=== PATIENT | male | born 1980 | race Caucasian/White ===

== ENCOUNTER 2018-11-11 13:38 | Emergency (ER) | payer OTHER, SELFPAY ==
[2018-11-11 13:51] VITALS: BP 140/95; PULSE 58; RESP 14; TEMP 36.7; O2SAT 98; BMI 23.1
--- NOTE | 2018-11-11 13:58 | DI.RAD.S_ITS ---
PROCEDURE: XR CHEST 1V INDICATIONS: chest pain TECHNIQUE: One view of the chest was acquired. COMPARISON: None. FINDINGS: Surgical changes and devices: None. Lungs and pleura: Lungs are clear. No pleural effusions or pneumothorax. Mediastinum: Mediastinal contours appear normal. Heart size is normal. Bones and chest wall: No suspicious bony lesions. Overlying soft tissues appear unremarkable. IMPRESSION: No acute cardiopulmonary findings. Dictated by: Lisa Pineda M.D. on 11/11/2018 at 13:34 Approved by: Lisa Pineda M.D. on 11/11/2018 at 13:34
[2018-11-11 14:01] VITALS: BP 140/95; PULSE 58; RESP 14; TEMP 36.7; O2SAT 98; BMI 23.1
--- NOTE | 2018-11-11 14:13 | ED.CHESTPAIN ---
HPI - Chest Pain <Livier Lopez PA-C - Last Filed: 11/11/18 19:37> General Chief Complaint: Chest Pain Stated Complaint: chest/lt shoulder/back/tingling fingers Time Seen by Provider: 11/11/18 14:13 History of Present Illness HPI narrative: This 37-year-old male comes to ED secondary to 2 day history of ?euphoric/panicky bouts. He states he has woken up with these sensations which feel like an adrenaline elizondo, almost like when he was dehydrated in the past but resolved quickly. He states that this also happened yesterday when he was playing disc golf, he felt anxious and saw spots. He states that he feels like if the symptoms persist he could pass out, but they resolve right away. He states that he has had pain that is deep in between his shoulder blades, in his upper back and perhaps chest for 2 or 3 weeks. He describes this as a pulling sensation. He denies radiation of the pain, but states he has had no tingling in his thumb and pointer and middle fingers ongoing during this time as well. He denies any weakness. He denies any tingling, numbness or weakness in the lower extremities. He states that he has had some fatigue and ongoing headaches for the last few weeks. He states that he was recently diagnosed with hepatitis C and has a ?nagging sense of neglect? as far as his health goes. He did see a primary care provider 2 months ago and started on Paxil for anxiety. He feels like some of his symptoms are correlated with starting this. He is on numerous herbal supplements and vitamins including Kratom, he thinks 3gm daily total, states none of these have changed recently. He states he has an ongoing, mild dull headache also without any acute changes. He denies any vision change. He denies any dyspnea. He denies any pain or swelling in the extremities. He states he is not having any new abdominal pain, urinary symptoms or bowel habit changes. No new fever or rash. 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 Related Data Allergies Allergy/AdvReac Type Severity Reaction Status Date / Time No Known Drug Allergies Allergy Verified 11/11/18 13:56 Review of Systems <Livier Lopez PA-C - Last Filed: 11/11/18 19:37> Review of Systems ROS Unobtainable: All systems reviewed & are unremarkable except as noted in HPI and below PFSH <Livier Lopez PA-C - Last Filed: 11/11/18 19:37> Medical History (Updated 11/11/18 @ 15:48 by Livier Lopez PA-C) No pertinent family history (Chronic) Anxiety disorder (Chronic) Marijuana abuse (Chronic) Hepatitis C (Chronic) Surgical History (Updated 11/11/18 @ 14:50 by Livier Lopez PA-C) No pertinent past surgical history (Chronic) Comment: occ tob, +THC Exam <Livier Lopez PA-C - Last Filed: 11/11/18 19:37> Narrative Exam Narrative: GENERAL APPEARANCE: Patient sitting comfortably, in no distress. HEENT: PERRL, EOMI, no scleral icterus NECK: Supple LUNGS: Clear to auscultation bilaterally. CHEST: No tenderness to palpation HEART: Rate and rhythm regular, normal S1 and S2, no S3 or S4. ABDOMEN: Soft, nontender, nondistended, bowel sounds present x 4 quadrants, no masses palpable, no hepatosplenomegaly. EXTREMITIES: No edema, no cyanosis, no calf tenderness DERMATOLOGIC: No jaundice or exanthem NEUROLOGIC: Alert and oriented with normal speech and coordination. Sensation grossly intact throughout the extremities MUSCULOSKELETAL: Full range of motion of the extremities, clinical nurse reviewer strength 5/5 bilaterally Initial Vital Signs Initial Vital Signs: Vital Signs Temperature 98.0 F 11/11/18 13:51 Pulse Rate 58 L 11/11/18 13:51 Respiratory Rate 14 11/11/18 13:51 Blood Pressure 140/95 H 11/11/18 13:51 Pulse Oximetry 98 11/11/18 13:51 <Ivet Solorio DO - Last Filed: 11/14/18 09:06> Initial Vital Signs Initial Vital Signs: Vital Signs Temperature 98.0 F 11/11/18 13:51 Pulse Rate 58 L 11/11/18 13:51 Respiratory Rate 14 11/11/18 13:51 Blood Pressure 140/95 H 11/11/18 13:51 Pulse Oximetry 98 11/11/18 13:51 Course <Livier Lopez PA-C - Last Filed: 11/11/18 19:37> Additional Information: Patient appears well on exam today. His symptoms started around the time he was diagnosed with hepatitis C and he admits to having a significant amount of anxiety surrounding this as well as previous anxiety disorder, which we discussed could be worsened by herbal medications and especially Kratom. Advised to start tapering off of that and to see a naturopathic physician if he wishes to use these type of medications. He does think perhaps paroxetine contributed to symptoms as well and he wants to discontinue this. Advised to taper to 10 mg and follow up with PCP in the next few days. He is agreeable with this plan as well as to return here if any acute changes or worsening symptoms in the interim Orders Ordered: ED Orders 11/11/18 13:58 XR chest 1V Stat EKG-12 Lead Stat 11/11/18 14:32 Complete Blood Count AUTO DIFF Stat Comprehensive Metabolic Panel Stat Lipase Stat Magnesium Stat Partial Thromboplastin Time Stat Prothrombin Time INR Stat Troponin & CK Cardiac Panel Stat Vital Signs - 8 hr 11/11/18 13:51 11/11/18 14:01 11/11/18 15:56 Temperature 98.0 F 98.0 F Pulse Rate 58 L 58 L 61 Respiratory Rate 14 14 13 Blood Pressure 140/95 H 140/95 H Blood Pressure [Left Arm] 123/77 Pulse Oximetry 98 98 97 11/11/18 16:04 Temperature Pulse Rate 62 Respiratory Rate 18 Blood Pressure 123/77 Blood Pressure [Left Arm] Pulse Oximetry 99 <Ivet Solorio, - Last Filed: 11/14/18 09:06> Orders Ordered: ED Orders 11/11/18 13:58 XR chest 1V Stat EKG-12 Lead Stat 11/11/18 14:32 Complete Blood Count AUTO DIFF Stat Comprehensive Metabolic Panel Stat Lipase Stat Magnesium Stat Partial Thromboplastin Time Stat Prothrombin Time INR Stat Troponin & CK Cardiac Panel Stat Vital Signs - 8 hr 11/11/18 13:51 11/11/18 14:01 11/11/18 15:56 Temperature 98.0 F 98.0 F Pulse Rate 58 L 58 L 61 Respiratory Rate 14 14 13 Blood Pressure 140/95 H 140/95 H Blood Pressure [Left Arm] 123/77 Pulse Oximetry 98 98 97 11/11/18 16:04 Temperature Pulse Rate 62 Respiratory Rate 18 Blood Pressure 123/77 Blood Pressure [Left Arm] Pulse Oximetry 99 MDM - Chest Pain <Livier Lopez PA-C - Last Filed: 11/11/18 19:37> Lab Data Result diagrams: 11/11/18 14:32 11/11/18 14:32 Lab Results 11/11/18 11/11/18 11/11/18 Range/Units 14:32 14:32 14:32 WBC 5.3 (4.5-11.0) X10^3/uL RBC 4.67 (4.5-5.9) X10^6/uL Hgb 15.0 (13.5-17.5) g/dL Hct 44.5 (41-53) % MCV 95.2 (80-100) fL MCH 32.1 (26-34) PG MCHC 33.8 (30-36) % RDW 12.9 (11.6-14.8) % Plt Count 262 (150-400) X10^3/uL Neut % (Auto) 46.6 L (50-75) % Lymph % (Auto) 38.4 (25-40) % Dewey % (Auto) 11.5 (3-14) % Eos % (Auto) 2.2 (2-4) % Baso % (Auto) 1.3 (0-2) % Neut # (Auto) 2500 (7317-2826) /uL Lymph # (Auto) 2000 (0247-0673) /uL Dewey # (Auto) 600 (0-900) /uL Eos # (Auto) 100 (0-450) /uL Baso # (Auto) 100 (0-100) /uL PT 10.2 (10.1-12.7) SECONDS INR 0.9 (0.9-1.3) APTT 33 (26.4-36.2) SECONDS Sodium 138 (137-145) mmol/L Potassium 3.9 (3.4-5.1) mmol/L Chloride 101 (98-107) mmol/L Carbon Dioxide 29 (22-32) mmol/L BUN 26 H (9-20) mg/dL Creatinine 1.10 (0.66-1.25) mg/dL Estimated GFR > 60.0 (>60) mL/min BUN/Creatinine Ratio 23.6 H (6-22) Glucose 93 (70-100) mg/dL Calcium 9.4 (8.4-10.2) mg/dL Magnesium 1.9 (1.6-2.3) mg/dL Total Bilirubin 0.4 (0.2-1.3) mg/dL AST 280 H (17-59) IU/L ALT 605 H (21-72) IU/L Alkaline Phosphatase 125 (38-126) U/L Total Creatine Kinase 275 H (55-170) U/L CK-MB (CK-2) 2.42 H (<2.37) ng/mL CK-MB (CK-2) Rel Index 0.9 L (1.5-5.0) % Troponin I < 0.012 (0.01-0.034) ng/mL Total Protein 7.6 (6.3-8.2) g/dL Albumin 4.6 (3.5-5.0) g/dL Globulin 3.0 (1.7-4.1) g/dL Albumin/Globulin Ratio 1.5 (1.0-2.8) Lipase 145 (23-300) U/L Imaging Data Chest x-ray: Radiologist's impression: [place] [address] XRay Report Signed Patient: Sami Wade EMR#: [id number] : 1980Acct:[id number] Age/Sex: 38 / MDate of Service: 11/11/18 Loc: ED Accession Number: [id number] Procedure: XR chest 1V Ordering Provider: Ivet Solorio D.O. PROCEDURE: XR CHEST 1V INDICATIONS: chest pain TECHNIQUE: One view of the chest was acquired. COMPARISON: None. FINDINGS: Surgical changes and devices: None. Lungs and pleura: Lungs are clear. No pleural effusions or pneumothorax. Mediastinum: Mediastinal contours appear normal. Heart size is normal. Bones and chest wall: No suspicious bony lesions. Overlying soft tissues appear unremarkable. IMPRESSION: No acute cardiopulmonary findings. Dictated by: Lisa Pineda M.D. on 11/11/2018 at 13:34 Approved by: Lisa Pineda M.D. on 11/11/2018 at 13:34 ECG Data Attestation: I personally reviewed and interpreted this ECG as follows: (Sinus bradycardia, rate 57, normal axis) <DO Maryann Jacobo Filed: 11/14/18 09:06> Lab Data Lab Results 11/11/18 11/11/18 11/11/18 Range/Units 14:32 14:32 14:32 WBC 5.3 (4.5-11.0) X10^3/uL RBC 4.67 (4.5-5.9) X10^6/uL Hgb 15.0 (13.5-17.5) g/dL Hct 44.5 (41-53) % MCV 95.2 (80-100) fL MCH 32.1 (26-34) PG MCHC 33.8 (30-36) % RDW 12.9 (11.6-14.8) % Plt Count 262 (150-400) X10^3/uL Neut % (Auto) 46.6 L (50-75) % Lymph % (Auto) 38.4 (25-40) % Dewey % (Auto) 11.5 (3-14) % Eos % (Auto) 2.2 (2-4) % Baso % (Auto) 1.3 (0-2) % Neut # (Auto) 2500 (3588-7078) /uL Lymph # (Auto) 2000 (9468-9134) /uL Dewey # (Auto) 600 (0-900) /uL Eos # (Auto) 100 (0-450) /uL Baso # (Auto) 100 (0-100) /uL PT 10.2 (10.1-12.7) SECONDS INR 0.9 (0.9-1.3) APTT 33 (26.4-36.2) SECONDS Sodium 138 (137-145) mmol/L Potassium 3.9 (3.4-5.1) mmol/L Chloride 101 (98-107) mmol/L Carbon Dioxide 29 (22-32) mmol/L BUN 26 H (9-20) mg/dL Creatinine 1.10 (0.66-1.25) mg/dL Estimated GFR > 60.0 (>60) mL/min BUN/Creatinine Ratio 23.6 H (6-22) Glucose 93 (70-100) mg/dL Calcium 9.4 (8.4-10.2) mg/dL Magnesium 1.9 (1.6-2.3) mg/dL Total Bilirubin 0.4 (0.2-1.3) mg/dL AST 280 H (17-59) IU/L ALT 605 H (21-72) IU/L Alkaline Phosphatase 125 (38-126) U/L Total Creatine Kinase 275 H (55-170) U/L CK-MB (CK-2) 2.42 H (<2.37) ng/mL CK-MB (CK-2) Rel Index 0.9 L (1.5-5.0) % Troponin I < 0.012 (0.01-0.034) ng/mL Total Protein 7.6 (6.3-8.2) g/dL Albumin 4.6 (3.5-5.0) g/dL Globulin 3.0 (1.7-4.1) g/dL Albumin/Globulin Ratio 1.5 (1.0-2.8) Lipase 145 (23-300) U/L Discharge Plan Departure Patient Disposition: Home Clinical Impression: Drug side effects, Chest discomfort Faintness Qualifiers: Syncope type: unspecified Qualified Code(s): R55 - Syncope and collapse Discharge Date/Time: 11/11/18 16:04 Interventions: ED Discharge Assessment Last Done: 11/11/18 16:04 Instructions: DI for Atypical Chest Pain, DI for Dizziness-Nonvertigo Activity Restrictions/Additional Instructions: I am not sure exactly what has caused your adrenaline/dizzy type symptoms in the last couple of days. I suspect it may be due to herbal/medication side effects and panic attacks given what you have described to me about the sequence of symptoms and your recent stress. As we talked about, you should return to the ED if you have any acutely worsening symptoms or changes over the weekend. Otherwise, please start reducing your Kratom dose by 1/3 for the next 5-7 days, then reduce again for the next 5-7 days, and discontinue. This drug can cause significant side effects and opioid/stimulant type symptoms, and can also cause some of the ongoing symptoms that you described. I know you have not changed the dose recently but it could be cumulative. I am not sure of the interaction of this with other herbal medicines and your paroxetine. You may cut your paroxetine dose down to 1/2 tablet (10 mg) but do not stop this abruptly. Please follow-up with your PCP 1st of next week to assess your progress and determine what other changes to make. The number for the health customer resource specialist at [facility] is [phone] if you do wish to call regarding a local primary care provider here. Referrals: [facility], Maury Obrien [Other] <Ivet Solorio DO - Last Filed: 11/14/18 09:06> Cosign ED Attending Stanislawature Attestation: I was immediately available in the department for consultation. This documentation has been reviewed and I agree with assessment and plan. Supervised by Ivet Solorio DO
[2018-11-11 14:39] LABS: Add Manual Diff / Slide Review NO; Basophils Absolute Auto 100 /uL (0-100); Basophils Percent Auto 1.3 % (0-2); Eosinophils Absolute Auto 100 /uL (0-450); Eosinophils Percent Auto 2.2 % (2-4); Hematocrit 44.5 % (41-53); Lymphocytes Absolute Auto 2000 /uL (1100-4500); Lymphocytes Percent Auto 38.4 % (25-40); Mean Corpuscular HGB Conc 33.8 % (30-36); Mean Corpuscular Hemoglobin 32.1 PG (26-34); Mean Corpuscular Volume 95.2 fL (80-100); Monocytes Absolute Auto 600 /uL (0-900); Monocytes Percent Auto 11.5 % (3-14); Neutrophils Absolute Auto 2500 /uL (1500-7000); Neutrophils Percent Auto 46.6 % (50-75); Platelet Count 262 X10^3/uL (150-400); Red Blood Cell Count 4.67 X10^6/uL (4.5-5.9); Red Cell Distribution Width 12.9 % (11.6-14.8); White Blood Cell Count 5.3 X10^3/uL (4.5-11.0)
--- NOTE | 2018-11-11 14:43 | ED_ITS ---
HPI - Chest Pain <Livier Lopez PA-C - Last Filed: 11/11/18 19:37> General Chief Complaint: Chest Pain Stated Complaint: chest/lt shoulder/back/tingling fingers Time Seen by Provider: 11/11/18 14:13 History of Present Illness HPI narrative: This 37-year-old male comes to ED secondary to 2 day history of ?euphoric/panicky bouts. He states he has woken up with these sensations which feel like an adrenaline elizondo, almost like when he was dehydrated in the past but resolved quickly. He states that this also happened yesterday when he was playing disc golf, he felt anxious and saw spots. He states that he feels like if the symptoms persist he could pass out, but they resolve right away. He states that he has had pain that is deep in between his shoulder blades, in his upper back and perhaps chest for 2 or 3 weeks. He describes this as a pulling sensation. He denies radiation of the pain, but states he has had no tingling in his thumb and pointer and middle fingers ongoing during this time as well. He denies any weakness. He denies any tingling, numbness or weakness in the lower extremities. He states that he has had some fatigue and ongoing headaches for the last few weeks. He states that he was recently diagnosed with hepatitis C and has a ?nagging sense of neglect? as far as his health goes. He did see a primary care provider 2 months ago and started on Paxil for anxiety. He feels like some of his symptoms are correlated with starting this. He is on numerous herbal supplements and vitamins including Kratom, he thinks 3gm daily total, states none of these have changed recently. He states he has an ongoing, mild dull headache also without any acute changes. He denies any vision change. He denies any dyspnea. He denies any pain or swelling in the extremities. He states he is not having any new abdominal pain, urinary symptoms or bowel habit changes. No new fever or rash. 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 Related Data Allergies Allergy/AdvReac Type Severity Reaction Status Date / Time No Known Drug Allergies Allergy Verified 11/11/18 13:56 Review of Systems <Livier Lopez PA-C - Last Filed: 11/11/18 19:37> Review of Systems ROS Unobtainable: All systems reviewed & are unremarkable except as noted in HPI and below PFSH <Livier Lopez PA-C - Last Filed: 11/11/18 19:37> Medical History (Updated 11/11/18 @ 15:48 by Livier Lopez PA-C) No pertinent family history (Chronic) Anxiety disorder (Chronic) Marijuana abuse (Chronic) Hepatitis C (Chronic) Surgical History (Updated 11/11/18 @ 14:50 by Livier Lopez PA-C) No pertinent past surgical history (Chronic) Comment: occ tob, +THC Exam <PAM Freedman Last Filed: 11/11/18 19:37> Narrative Exam Narrative: GENERAL APPEARANCE: Patient sitting comfortably, in no distress. HEENT: PERRL, EOMI, no scleral icterus NECK: Supple LUNGS: Clear to auscultation bilaterally. CHEST: No tenderness to palpation HEART: Rate and rhythm regular, normal S1 and S2, no S3 or S4. ABDOMEN: Soft, nontender, nondistended, bowel sounds present x 4 quadrants, no masses palpable, no hepatosplenomegaly. EXTREMITIES: No edema, no cyanosis, no calf tenderness DERMATOLOGIC: No jaundice or exanthem NEUROLOGIC: Alert and oriented with normal speech and coordination. 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 Initial Vital Signs Initial Vital Signs: Vital Signs Temperature 98.0 F 11/11/18 13:51 Pulse Rate 58 L 11/11/18 13:51 Respiratory Rate 14 11/11/18 13:51 Blood Pressure 140/95 H 11/11/18 13:51 Pulse Oximetry 98 11/11/18 13:51 <Ivet Solorio DO - Last Filed: 11/14/18 09:06> Initial Vital Signs Initial Vital Signs: Vital Signs Temperature 98.0 F 11/11/18 13:51 Pulse Rate 58 L 11/11/18 13:51 Respiratory Rate 14 11/11/18 13:51 Blood Pressure 140/95 H 11/11/18 13:51 Pulse Oximetry 98 11/11/18 13:51 Course <Livier Lopez PA-C - Last Filed: 11/11/18 19:37> Additional Information: Patient appears well on exam today. His symptoms started around the time he was diagnosed with hepatitis C and he admits to having a significant amount of anxiety surrounding this as well as previous anxiety disorder, which we discussed could be worsened by herbal medications and especially Kratom. Advised to start tapering off of that and to see a naturopathic physician if he wishes to use these type of medications. He does think perhaps paroxetine contributed to symptoms as well and he wants to discontinue this. Advised to taper to 10 mg and follow up with PCP in the next few days. He is agreeable with this plan as well as to return here if any acute changes or worsening symptoms in the interim Orders Ordered: ED Orders 11/11/18 13:58 XR chest 1V Stat EKG-12 Lead Stat 11/11/18 14:32 Complete Blood Count AUTO DIFF Stat Comprehensive Metabolic Panel Stat Lipase Stat Magnesium Stat Partial Thromboplastin Time Stat Prothrombin Time INR Stat Troponin & CK Cardiac Panel Stat Vital Signs - 8 hr 11/11/18 13:51 11/11/18 14:01 11/11/18 15:56 Temperature 98.0 F 98.0 F Pulse Rate 58 L 58 L 61 Respiratory Rate 14 14 13 Blood Pressure 140/95 H 140/95 H Blood Pressure [Left Arm] 123/77 Pulse Oximetry 98 98 97 11/11/18 16:04 Temperature Pulse Rate 62 Respiratory Rate 18 Blood Pressure 123/77 Blood Pressure [Left Arm] Pulse Oximetry 99 <Ivet Solorio, DO - Last Filed: 11/14/18 09:06> Orders Ordered: ED Orders 11/11/18 13:58 XR chest 1V Stat EKG-12 Lead Stat 11/11/18 14:32 Complete Blood Count AUTO DIFF Stat Comprehensive Metabolic Panel Stat Lipase Stat Magnesium Stat Partial Thromboplastin Time Stat Prothrombin Time INR Stat Troponin & CK Cardiac Panel Stat Vital Signs - 8 hr 11/11/18 13:51 11/11/18 14:01 11/11/18 15:56 Temperature 98.0 F 98.0 F Pulse Rate 58 L 58 L 61 Respiratory Rate 14 14 13 Blood Pressure 140/95 H 140/95 H Blood Pressure [Left Arm] 123/77 Pulse Oximetry 98 98 97 11/11/18 16:04 Temperature Pulse Rate 62 Respiratory Rate 18 Blood Pressure 123/77 Blood Pressure [Left Arm] Pulse Oximetry 99 MDM - Chest Pain <Livier Lopez PA-C - Last Filed: 11/11/18 19:37> Lab Data Result diagrams: 11/11/18 14:32 11/11/18 14:32 Lab Results 11/11/18 11/11/18 11/11/18 Range/Units 14:32 14:32 14:32 WBC 5.3 (4.5-11.0) X10^3/uL RBC 4.67 (4.5-5.9) X10^6/uL Hgb 15.0 (13.5-17.5) g/dL Hct 44.5 (41-53) % MCV 95.2 (80-100) fL MCH 32.1 (26-34) PG MCHC 33.8 (30-36) % RDW 12.9 (11.6-14.8) % Plt Count 262 (150-400) X10^3/uL Neut % (Auto) 46.6 L (50-75) % Lymph % (Auto) 38.4 (25-40) % Crane % (Auto) 11.5 (3-14) % Eos % (Auto) 2.2 (2-4) % Baso % (Auto) 1.3 (0-2) % Neut # (Auto) 2500 (2153-8210) /uL Lymph # (Auto) 2000 (7954-3189) /uL Crane # (Auto) 600 (0-900) /uL Eos # (Auto) 100 (0-450) /uL Baso # (Auto) 100 (0-100) /uL PT 10.2 (10.1-12.7) SECONDS INR 0.9 (0.9-1.3) APTT 33 (26.4-36.2) SECONDS Sodium 138 (137-145) mmol/L Potassium 3.9 (3.4-5.1) mmol/L Chloride 101 (98-107) mmol/L Carbon Dioxide 29 (22-32) mmol/L BUN 26 H (9-20) mg/dL Creatinine 1.10 (0.66-1.25) mg/dL Estimated GFR > 60.0 (>60) mL/min BUN/Creatinine Ratio 23.6 H (6-22) Glucose 93 (70-100) mg/dL Calcium 9.4 (8.4-10.2) mg/dL Magnesium 1.9 (1.6-2.3) mg/dL Total Bilirubin 0.4 (0.2-1.3) mg/dL AST 280 H (17-59) IU/L ALT 605 H (21-72) IU/L Alkaline Phosphatase 125 (38-126) U/L Total Creatine Kinase 275 H (55-170) U/L CK-MB (CK-2) 2.42 H (<2.37) ng/mL CK-MB (CK-2) Rel Index 0.9 L (1.5-5.0) % Troponin I < 0.012 (0.01-0.034) ng/mL Total Protein 7.6 (6.3-8.2) g/dL Albumin 4.6 (3.5-5.0) g/dL Globulin 3.0 (1.7-4.1) g/dL Albumin/Globulin Ratio 1.5 (1.0-2.8) Lipase 145 (23-300) U/L Imaging Data Chest x-ray: Radiologist's impression: [place] [address] XRay Report Signed Patient: Sami Wade EMR#: [id number] : 1980Acct:[id number] Age/Sex: 38 / MDate of Service: 11/11/18 Loc: ED Accession Number: [id number] Procedure: XR chest 1V Ordering Provider: Ivet Solorio D.O. PROCEDURE: XR CHEST 1V INDICATIONS: chest pain TECHNIQUE: One view of the chest was acquired. COMPARISON: None. FINDINGS: Surgical changes and devices: None. Lungs and pleura: Lungs are clear. No pleural effusions or pneumothorax. Mediastinum: Mediastinal contours appear normal. Heart size is normal. Bones and chest wall: No suspicious bony lesions. Overlying soft tissues appear unremarkable. IMPRESSION: No acute cardiopulmonary findings. Dictated by: Lisa Pineda M.D. on 11/11/2018 at 13:34 Approved by: Lisa Pineda M.D. on 11/11/2018 at 13:34 ECG Data Attestation: I personally reviewed and interpreted this ECG as follows: (Sinus bradycardia, rate 57, normal axis) <Ivet C Mank, DO - Last Filed: 11/14/18 09:06> Lab Data Lab Results 11/11/18 11/11/18 11/11/18 Range/Units 14:32 14:32 14:32 WBC 5.3 (4.5-11.0) X10^3/uL RBC 4.67 (4.5-5.9) X10^6/uL Hgb 15.0 (13.5-17.5) g/dL Hct 44.5 (41-53) % MCV 95.2 (80-100) fL MCH 32.1 (26-34) PG MCHC 33.8 (30-36) % RDW 12.9 (11.6-14.8) % Plt Count 262 (150-400) X10^3/uL Neut % (Auto) 46.6 L (50-75) % Lymph % (Auto) 38.4 (25-40) % Crane % (Auto) 11.5 (3-14) % Eos % (Auto) 2.2 (2-4) % Baso % (Auto) 1.3 (0-2) % Neut # (Auto) 2500 (7681-1840) /uL Lymph # (Auto) 2000 (5768-7037) /uL Crane # (Auto) 600 (0-900) /uL Eos # (Auto) 100 (0-450) /uL Baso # (Auto) 100 (0-100) /uL PT 10.2 (10.1-12.7) SECONDS INR 0.9 (0.9-1.3) APTT 33 (26.4-36.2) SECONDS Sodium 138 (137-145) mmol/L Potassium 3.9 (3.4-5.1) mmol/L Chloride 101 (98-107) mmol/L Carbon Dioxide 29 (22-32) mmol/L BUN 26 H (9-20) mg/dL Creatinine 1.10 (0.66-1.25) mg/dL Estimated GFR > 60.0 (>60) mL/min BUN/Creatinine Ratio 23.6 H (6-22) Glucose 93 (70-100) mg/dL Calcium 9.4 (8.4-10.2) mg/dL Magnesium 1.9 (1.6-2.3) mg/dL Total Bilirubin 0.4 (0.2-1.3) mg/dL AST 280 H (17-59) IU/L ALT 605 H (21-72) IU/L Alkaline Phosphatase 125 (38-126) U/L Total Creatine Kinase 275 H (55-170) U/L CK-MB (CK-2) 2.42 H (<2.37) ng/mL CK-MB (CK-2) Rel Index 0.9 L (1.5-5.0) % Troponin I < 0.012 (0.01-0.034) ng/mL Total Protein 7.6 (6.3-8.2) g/dL Albumin 4.6 (3.5-5.0) g/dL Globulin 3.0 (1.7-4.1) g/dL Albumin/Globulin Ratio 1.5 (1.0-2.8) Lipase 145 (23-300) U/L Discharge Plan Departure Patient Disposition: Home Clinical Impression: Drug side effects, Chest discomfort Faintness Qualifiers: Syncope type: unspecified Qualified Code(s): R55 - Syncope and collapse Discharge Date/Time: 11/11/18 16:04 Interventions: ED Discharge Assessment Last Done: 11/11/18 16:04 Instructions: DI for Atypical Chest Pain, DI for Dizziness-Nonvertigo Activity Restrictions/Additional Instructions: I am not sure exactly what has caused your adrenaline/dizzy type symptoms in the last couple of days. I suspect it may be due to herbal/medication side effects and panic attacks given what you have described to me about the sequence of symptoms and your recent stress. As we talked about, you should return to the ED if you have any acutely worsening symptoms or changes over the weekend. Otherwise, please start reducing your Kratom dose by 1/3 for the next 5-7 days, then reduce again for the next 5-7 days, and discontinue. This drug can cause significant side effects and opioid/stimulant type symptoms, and can also cause some of the ongoing symptoms that you described. I know you have not changed the dose recently but it could be cumulative. I am not sure of the interaction of this with other herbal medicines and your paroxetine. You may cut your paroxetine dose down to 1/2 tablet (10 mg) but do not stop this abruptly. Please follow-up with your PCP 1st of next week to assess your progress and determine what other changes to make. The number for the health resource conservation manager at [facility] is [phone] if you do wish to call regarding a local primary care provider here. Referrals: [facility], [facility]rien [Other] <Ivet Solorio DO - Last Filed: 11/14/18 09:06> Cosign ED Attending Stanislawature Attestation: I was immediately available in the department for consultation. This documentation has been reviewed and I agree with assessment and plan. Supervised by Ivet Solorio DO
[2018-11-11 14:47] LABS: INR 0.9 (0.9-1.3); Prothrombin Time 10.2 SECONDS (10.1-12.7)
[2018-11-11 14:50] LABS: PTT Partial Thromboplastin Tim 33 SECONDS (26.4-36.2)
[2018-11-11 14:53] LABS: Alanine Aminotransferase 605 IU/L (21-72); Albumin 4.6 g/dL (3.5-5.0); Albumin Globulin Ratio 1.5 (1.0-2.8); Alkaline Phosphatase 125 U/L (38-126); Aspartate Aminotransferase 280 IU/L (17-59); BUN Creatinine Ratio 23.6 (6-22); Bilirubin Total 0.4 mg/dL (0.2-1.3); Blood Urea Nitrogen 26 mg/dL (9-20); Calcium 9.4 mg/dL (8.4-10.2); Carbon Dioxide 29 mmol/L (22-32); Chloride 101 mmol/L (98-107); Creatine Kinase 275 U/L (55-170); Estimated Glomerular Filt Rate > 60.0 mL/min (>60); Glucose 93 mg/dL (70-100); Lipase 145 U/L (23-300); Magnesium 1.9 mg/dL (1.6-2.3); Potassium 3.9 mmol/L (3.4-5.1); Sodium 138 mmol/L (137-145); Total Protein 7.6 g/dL (6.3-8.2)
[2018-11-11 15:04] LABS: Troponin I < 0.012 ng/mL (0.01-0.034)
[2018-11-11 15:08] LABS: CKMB % Relative Index 0.9 % (1.5-5.0); Creatine Kinase MB 2.42 ng/mL (<2.37); HEMOLYSIS 19 (0-50)
[2018-11-11 15:56] VITALS: BP 123/77; PULSE 61; RESP 13; O2SAT 97
[2018-11-11 16:04] VITALS: BP 123/77; PULSE 62; RESP 18; O2SAT 99
== END 2018-11-11 16:04 | disposition home or self-care (01) ==
PROVIDERS: Emergency Medicine; Emergency Provider Internal Medicine
DX: R55 Syncope and collapse (principal); R07.89 Other chest pain; R00.1 Bradycardia, unspecified
CPT/HCPCS: 36591; 71045; 80053; 82550; 82553; 83690; 83735; 84484; 85025; 85610; 85730; 93005; 99282; 99285